=== PATIENT | female | born 2000 | race Caucasian/White ===

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

== ENCOUNTER → 2018-02-27 | Outpatient (CLI) | payer OTHER ==
[2018-02-27 18:27] LABS: BASO # 0.1 10^3/uL (0.0-0.2); BASO % 0.6 % (0.0-1.0); EOS # 0.1 10^3/uL (0.0-0.50); EOS % 0.5 % (0.0-3.0); HEMATOCRIT 34.2 % (36.0-47.0); HEMOGLOBIN 10.7 g/dl (12.0-15.5); IMMATURE GRANULOCYTE % 0.4 % (0-3.0); LYMPH # 1.5 10^3/uL (1.5-6.5); LYMPH % 15.9 % (24.0-44.0); MEAN CORPUSCULAR HGB CONC 31.3 g/dl (32.0-36.5); MONO # 0.6 10^3/uL (0.0-0.8); NEUTROPHILS # 7.2 10^3/uL (1.8-7.7); NEUTROPHILS % 76.6 % (36.0-66.0); PLATELET COUNT, AUTOMATED 221 10^3/uL (150-450); RED BLOOD COUNT 4.12 10^6/uL (4.00-5.40); RED CELL DISTRIBUTION WIDTH 14.4 % (11.5-14.5); WHITE BLOOD COUNT 9.4 10^3/uL (4.0-10.0)
[2018-02-27 22:44] LABS: CHLAMYDIA DNA AMPLIFICATION NEGATIVE (NEGATIVE); GC DNA AMPLIFICATION NEGATIVE (NEGATIVE)
[2018-03-02 10:57] LABS: HBsAg Prenatal NEGATIVE (NEGATIVE); HIV 1&2 SCREEN CENTAUR NEGATIVE (NEGATIVE); RUBELLA IgG QUALITATIVE IMMUNE (IMMUNE)
[2018-03-02 10:57] LABS: HEPATITIS C VIRUS ABY INDEX < 0.0 INDEX (<0.8)
== END ==
LOC: M SMT 11:11
DX: Z36.89 Encounter for other specified antenatal screening (principal)
CPT/HCPCS: 86762

== ENCOUNTER → 2018-04-01 | Outpatient (CLI) | payer OTHER ==
[2018-04-01 16:56] LABS: HEMATOCRIT 32.4 % (36.0-47.0); HEMOGLOBIN 10.1 g/dl (12.0-15.5); MEAN CORPUSCULAR HEMOGLOBIN 24.7 pg (27.0-33.0); MEAN CORPUSCULAR HGB CONC 31.2 g/dl (32.0-36.5); MEAN CORPUSCULAR VOLUME 79.2 fl (80.0-96.0); PLATELET COUNT, AUTOMATED 237 10^3/uL (150-450); RED BLOOD COUNT 4.09 10^6/uL (4.00-5.40); RED CELL DISTRIBUTION WIDTH 15.5 % (11.5-14.5); WHITE BLOOD COUNT 11.5 10^3/uL (4.0-10.0)
== END ==
LOC: M LAB 16:01
DX: Z34.83 Encounter for supervision of other normal pregnancy, third trimester (principal); Z3A.00 Weeks of gestation of pregnancy not specified
CPT/HCPCS: 85027

== ENCOUNTER 2018-04-03 16:13 | Outpatient (CLI) | payer OTHER | END 2018-04-03 17:35 | disposition home or self-care (01) | LOC: M LDO 16:13 | DX: O36.8130 Decreased fetal movements, third trimester, not applicable or unspecified (principal); Z3A.35 35 weeks gestation of pregnancy | CPT/HCPCS: 59025 ==

== ENCOUNTER → 2018-04-15 | Outpatient (REF) | payer OTHER | LOC: M LAB REF 17:18 | DX: Z36.89 Encounter for other specified antenatal screening (principal) | CPT/HCPCS: 87186 ==

== ENCOUNTER 2018-05-08 14:17 | Inpatient (IN) | payer OTHER ==
[2018-05-08] MEDS: miSOPROStol 50 MCG 1/2 TAB (S0191) PO ×2 (16:03→20:29)
[2018-05-08 16:11] LABS: HEMATOCRIT 31.7 % (36.0-47.0); MEAN CORPUSCULAR HEMOGLOBIN 23.6 pg (27.0-33.0); MEAN CORPUSCULAR HGB CONC 31.5 g/dl (32.0-36.5); MEAN CORPUSCULAR VOLUME 74.9 fl (80.0-96.0); PLATELET COUNT, AUTOMATED 229 10^3/uL (150-450); RED BLOOD COUNT 4.23 10^6/uL (4.00-5.40); RED CELL DISTRIBUTION WIDTH 18.3 % (11.5-14.5)
[2018-05-08 16:21] LABS: AMPHETAMINES URINE REFLEX NEGATIVE (NEGATIVE); BARBITURATES URINE REFLEX NEGATIVE (NEGATIVE); BENZODIAZEPINES URINE REFLEX NEGATIVE (NEGATIVE); CANNABINOIDS URINE REFLEX NEGATIVE (NEGATIVE); COCAINE METABOLITE URINE REFLE NEGATIVE (NEGATIVE); METHADONE URINE REFLEX NEGATIVE (NEGATIVE); OPIATES URINE REFLEX NEGATIVE (NEGATIVE); PHENCYCLIDINE URINE REFLEX NEGATIVE (NEGATIVE)
[2018-05-08] MEDS ORDERED: PENICILLIN G POTASSIUM IV 2.5 MU in APPROPRIATE DILUENT 1 EA IV (19:30)
[2018-05-09] MEDS ORDERED: OXYTOCIN 30 UNITS IN 0.9% NaCl 500ML IV BAG (J2590) As Ordered (03:47)
[2018-05-09] MEDS: LR 1,000 ML IV ×2 (03:53→12:21)
[2018-05-09] MEDS: OXYTOCIN DRIP 30 UNITS in APPROPRIATE DILUENT 1 EA IV ×2 (03:56→15:39)
[2018-05-09] MEDS: PENICILLIN G POTASSIUM IV 5 MU in D5W MINI-BAG PLUS 100 ML IV ×2 (08:23→08:30)
[2018-05-09] MEDS ORDERED: FENTANYL 2MCG/ML ROPIVACAINE 0.2% IN 0.9% NACL 100ML IVBAG As Ordered (09:52)
[2018-05-09] MEDS ORDERED: EPIDURAL COMMENT XX (10:00)
[2018-05-09] MEDS: FENTANYL/ROPIVACAINE/NACL BAG 100 ML EPIDURAL (10:00)
[2018-05-09] MEDS ORDERED: REFRIGERATOR IV KEYS XX (10:00)
[2018-05-09] MEDS ORDERED: EPIDURAL/PCA KEYS XX (10:00)
[2018-05-09] MEDS ORDERED: ePHEDrine SULFATE 25 MG/5 ML(5MG/ML) SYRINGE IV (10:45)
[2018-05-09] MEDS ORDERED: diphenhydrAMINE INJ 50MG/ML VIAL (J1200) IV (10:45)
[2018-05-09] MEDS ORDERED: LACTATED RINGER'S 1000 ML IV (10:45)
[2018-05-09] MEDS ORDERED: ONDANSETRON 4MG/2ML VIAL (J2405) IV (10:45)
[2018-05-09] MEDS ORDERED: NALOXONE INJ 0.4 MG/1 ML VIAL (J2310) IV (10:45)
[2018-05-09] MEDS: PENICILLIN G POTASSIUM IV 2.5 MU in APPROPRIATE DILUENT 1 EA IV (12:40)
[2018-05-09 16:11] LABS: CORD GAS ABE A -3.2; CORD GAS HCO3 A 24.7 MEQ/L; CORD GAS O2 SAT A 43.4 %; CORD GAS PCO2 A 55.3 mmHg; CORD GAS PH A 7.268 UNITS; CORD GAS PO2 A 19.5 mmHg; CORD GAS SBC A 20.5 MEQ/L; CORD GAS TCO2 A 26.4 MEQ/L
[2018-05-09 16:14] LABS: CORD GAS ABE V -0.2; CORD GAS HCO3 V 26.4 MEQ/L; CORD GAS O2 SAT V 57.9 %; CORD GAS PCO2 V 50.2 mmHg; CORD GAS PH V 7.339 UNITS; CORD GAS PO2 V 24.3 mmHg; CORD GAS SBC V 23.3 MEQ/L
[2018-05-09] MEDS ORDERED: DOCUSATE SODIUM 100 MG CAP PO (16:15)
[2018-05-09] MEDS ORDERED: METHYLERGONOVINE MALEATE 0.2 MG TAB PO (16:15)
[2018-05-09] MEDS: DIBUCAINE 1% OINTMENT 30GM TOP (18:24)
[2018-05-09] MEDS ORDERED: INFLUENZA QUADRIVALENT PF VACCINE 0.5ML SYRINGE (90686) IM (18:45)
[2018-05-09] MEDS: IBUPROFEN 800 MG TAB PO (20:32)
[2018-05-10] MEDS: PRENATAL VITAMINS CHEWABLE TABLET PO (08:11)
[2018-05-10] MEDS: DIBUCAINE 1% OINTMENT 30GM TOP (10:35)
[2018-05-10] MEDS: IBUPROFEN 800 MG TAB PO (18:13)
[2018-05-10] MEDS: ACETAMINOPHEN 500 MG TAB PO (19:20)
[2018-05-11] MEDS: IBUPROFEN 800 MG TAB PO (04:19)
[2018-05-11] MEDS: RHOGAM 300 MCG (1500 IU) INJ (J2790) IM (07:18)
[2018-05-11] MEDS: MEASLES,MUMPS,RUBELLA VACCINE INJ (MMR-II) (90707) SC (07:19)
[2018-05-11] MEDS: PRENATAL VITAMINS CHEWABLE TABLET PO (09:00)
== END 2018-05-11 12:35 | disposition home or self-care (01) | DRG 560 ==
LOC: M LDI 14:17 → M OBS 05-09 17:35
PROVIDERS: Advanced Practice Midwife
PROC: 0W8NXZZ Division of Female Perineum, External Approach (ICD-10-PCS; principal; 2018-05-09)
PROC: 0HQ9XZZ Repair Perineum Skin, External Approach (ICD-10-PCS; 2018-05-09)
PROC: 3E033VJ Introduction of Other Hormone into Peripheral Vein, Percutaneous Approach (ICD-10-PCS; 2018-05-09)
PROC: 3E0DXGC Introduction of Other Therapeutic Substance into Mouth and Pharynx, External Approach (ICD-10-PCS; 2018-05-09)
PROC: 10E0XZZ Delivery of Products of Conception, External Approach (ICD-10-PCS; 2018-05-09)
DX: O48.0 Post-term pregnancy (principal); B00.9 Herpesviral infection, unspecified; O98.52 Other viral diseases complicating childbirth; Z37.0 Single live birth; Z3A.40 40 weeks gestation of pregnancy; O69.82X0 Labor and delivery complicated by other cord entanglement, without compression, not applicable or unspecified; O70.0 First degree perineal laceration during delivery

== ENCOUNTER 2018-07-07 17:32 | Emergency (ER) | payer OTHER ==
[~2018-07-07] VITALS: Ht 167.6 cm; Wt 84.8 kg
[~2018-07-07 17:32] MED LIST: FERR325T3 PO; IBUP-1114 PO; MAPA500T2 PO; PRENTAB9 PO; TUMS500C PO; VALA500T5 PO
[2018-07-07] MEDS ORDERED: SERT25TA PO (19:06)
[2018-07-07] MEDS ORDERED: TOPI200T7 PO (19:06)
[2018-07-07] MEDS ORDERED: MICR1TAB7 PO (19:06)
[2018-07-07] MEDS ORDERED: LIDOCAINE 2% MDV 20 ML VIAL SC ONE (21:00)
[2018-07-07 22:03] VITALS: BP 117/66
== END 2018-07-07 22:04 | disposition home or self-care (01) ==
LOC: M ED 17:32
DX: L60.0 Ingrowing nail (principal); F32.9 Major depressive disorder, single episode, unspecified; Z79.899 Other long term (current) drug therapy; Z79.3 Long term (current) use of hormonal contraceptives

== ENCOUNTER → 2018-09-15 | Outpatient (CLI) | payer OTHER ==
[~2018-09-15] MED LIST changes: +MICR1TAB7 PO; +SERT25TA85 PO; +TOPI200T7 PO
[2018-09-15 17:24] LABS: HCG, SERUM QUALITATIVE NEGATIVE (NEGATIVE)
== END ==
LOC: M LAB 16:08
PROVIDERS: ATTEND Surgery
DX: Z41.9 Encounter for procedure for purposes other than remedying health state, unspecified (principal)

== ENCOUNTER 2018-09-19 11:12 | Emergency (ER) | payer OTHER ==
[~2018-09-19] VITALS: Ht 167.6 cm; Wt 87.8 kg
[2018-09-19] MEDS ORDERED: SUMA25TA3 (11:17)
[2018-09-19] MEDS ORDERED: ONDANSETRON 4 MG ORAL DISINTEGRATING TAB (Q0162 PER 1MG) PO ONE (11:45)
[2018-09-19] MEDS ORDERED: ONDA4TAB6 PO (12:17)
[2018-09-19 12:26] VITALS: BP 116/72
== END 2018-09-19 12:27 | disposition home or self-care (01) ==
LOC: M ED 11:12
DX: K52.9 Noninfective gastroenteritis and colitis, unspecified (principal); R51 Headache; F32.9 Major depressive disorder, single episode, unspecified; Z79.899 Other long term (current) drug therapy
CPT/HCPCS: 80047; 84702; 99283; Q0162

== ENCOUNTER → 2018-09-24 | Outpatient (REF) | payer OTHER, MEDICAID ==
[~2018-09-24] MED LIST changes: +ONDA4TAB6 PO; +SUMA25TA3
== END ==
LOC: M LAB REF 17:07
PROVIDERS: ATTEND Advanced Practice Midwife
DX: A60.04 Herpesviral vulvovaginitis (principal)

== ENCOUNTER → 2019-01-21 | Outpatient (REF) | payer OTHER, MEDICAID ==
[2019-01-21 13:15] LABS: BASO # 0.1 10^3/uL (0.0-0.2); BASO % 0.9 % (0.0-1.0); EOS # 0.1 10^3/uL (0.0-0.5); EOS % 1.8 % (0.0-3.0); HEMATOCRIT 40.6 % (36.0-47.0); HEMOGLOBIN 12.9 g/dl (12.0-15.5); LYMPH # 3.1 10^3/uL (1.5-5.0); LYMPH % 38.6 % (24.0-44.0); MEAN CORPUSCULAR HEMOGLOBIN 25.1 pg (27.0-33.0); MEAN CORPUSCULAR HGB CONC 31.8 g/dl (32.0-36.5); MEAN CORPUSCULAR VOLUME 79.1 fl (80.0-96.0); MONO # 0.6 10^3/uL (0.0-0.8); NEUTROPHILS # 4.1 10^3/uL (1.5-8.5); NEUTROPHILS % 51.3 % (36.0-66.0); PLATELET COUNT, AUTOMATED 284 10^3/uL (150-450); RED BLOOD COUNT 5.13 10^6/uL (4.00-5.40)
[2019-01-21 13:34] LABS: ALBUMIN 3.5 GM/DL (3.2-5.2); ALT/SGPT 36 U/L (12-78); BILIRUBIN,TOTAL 0.3 MG/DL (0.2-1.0); BLOOD UREA NITROGEN 11 MG/DL (7-18); CALCIUM LEVEL 9.2 MG/DL (8.5-10.1); CARBON DIOXIDE LEVEL 27 MEQ/L (21-32); CHLORIDE LEVEL 105 MEQ/L (98-107); CHOLESTEROL LEVEL 191 MG/DL (<200); CHOLESTEROL RISK RATIO 3.673 (<5); CREATININE FOR GFR 0.77 MG/DL (0.55-1.30); FREE T4 0.99 NG/DL (0.78-1.33); GLUCOSE, FASTING 83 MG/DL (70-100); HDL CHOLESTEROL 52 MG/DL (>40); LDL CHOLESTEROL 123 MG/DL (<100); NON-HDL-C 139 MG/DL; POTASSIUM SERUM 4.2 MEQ/L (3.5-5.1); SODIUM LEVEL 140 MEQ/L (136-145); THYROID STIMULATING HORMONE 0.048 uIU/ML (0.463-3.98); TOTAL 25(OH) VITAMIN D 38.3 NG/ML (30.0-100.0); TRIGLYCERIDES LEVEL 78 MG/DL (<150)
[2019-01-21 14:30] LABS: HEMOGLOBIN A1c 5.4 %
== END ==
LOC: M LAB REF 11:57
PROVIDERS: ATTEND Family Medicine
DX: Z13.228 Encounter for screening for other metabolic disorders (principal)

== ENCOUNTER 2019-02-27 08:21 | Emergency (ER) | payer MEDICAID, OTHER ==
[~2019-02-27] VITALS: Ht 167.6 cm; Wt 98.7 kg
[2019-02-27] MEDS ORDERED: NORCO, ANEXSIA 5/325MG TABLET (HYDROcodone/ACETAMINOPHEN) PO ONE (08:45)
--- NOTE | 2019-02-27 09:45 | REP ---
REASON: Pain after trauma. FINDINGS: No acute fracture or destructive osseous lesion. Electronically Signed by Brian Virgen DO 02/27/2019 09:51 A
--- NOTE | 2019-02-27 09:45 | REP ---
REASON: Pain after trauma. FINDINGS: No acute fracture or destructive osseous lesion. Electronically Signed by Brian Virgen DO 02/27/2019 09:51 A
[2019-02-27] MEDS ORDERED: NAPR-885 PO (09:53)
[2019-02-27 10:04] VITALS: BP 121/70
== END 2019-02-27 10:05 | disposition home or self-care (01) ==
LOC: M ED 08:21
DX: S50.11XA Contusion of right forearm, initial encounter (principal); W10.9XXA Fall (on) (from) unspecified stairs and steps, initial encounter; Y92.099 Unspecified place in other non-institutional residence as the place of occurrence of the external cause; Y93.9 Activity, unspecified; Y99.9 Unspecified external cause status

== ENCOUNTER → 2019-04-08 | Outpatient (REF) | payer OTHER ==
[~2019-04-08] MED LIST changes: +NAPR-885 PO
[2019-04-08 18:18] LABS: FREE T4 0.92 NG/DL (0.76-1.46); THYROID STIMULATING HORMONE 1.25 uIU/ML (0.358-3.740)
[2019-04-08 18:20] LABS: TOTAL T3 174.1 NG/DL (60.0-181.0)
[2019-04-09 12:11] LABS: THYROID PEROXIDASE ANTIBODY 32.6 U/ML (<60.0)
== END ==
LOC: M LABDRAW1 17:35
PROVIDERS: ATTEND Nurse Practitioner Family
DX: E05.00 Thyrotoxicosis with diffuse goiter without thyrotoxic crisis or storm (principal)

== ENCOUNTER 2019-04-24 16:14 | Emergency (ER) | payer OTHER ==
[~2019-04-24] VITALS: Ht 167.6 cm; Wt 98.4 kg
[2019-04-24 16:14] VITALS: BP 141/63
[2019-04-24] MEDS ORDERED: MONI4CRE3 PV (16:55)
== END 2019-04-24 17:10 | disposition home or self-care (01) ==
LOC: M ED 16:14
DX: O23.591 Infection of other part of genital tract in pregnancy, first trimester (principal); R59.0 Localized enlarged lymph nodes; Z3A.11 11 weeks gestation of pregnancy

== ENCOUNTER → 2019-06-15 | Outpatient (CLI) | payer OTHER ==
[~2019-06-15] MED LIST changes: +MONI4CRE3 PV
[2019-06-15 18:40] LABS: BASO # 0.1 10^3/uL (0.0-0.2); BASO % 0.5 % (0.0-1.0); EOS # 0.1 10^3/uL (0.0-0.5); EOS % 1.1 % (0.0-3.0); HEMATOCRIT 39.3 % (36.0-47.0); LYMPH # 2.3 10^3/uL (1.5-5.0); MEAN CORPUSCULAR HEMOGLOBIN 25.8 pg (27.0-33.0); MEAN CORPUSCULAR HGB CONC 30.5 g/dl (32.0-36.5); MEAN CORPUSCULAR VOLUME 84.3 fl (80.0-96.0); MONO # 0.7 10^3/uL (0.0-0.8); NEUTROPHILS # 7.9 10^3/uL (1.5-8.5); NEUTROPHILS % 70.8 % (36.0-66.0); PLATELET COUNT, AUTOMATED 262 10^3/uL (150-450); RED BLOOD COUNT 4.66 10^6/uL (4.00-5.40); WHITE BLOOD COUNT 11.2 10^3/uL (4.0-10.0)
[2019-06-15 20:01] LABS: CHLAMYDIA DNA AMPLIFICATION NEGATIVE (NEGATIVE); GC DNA AMPLIFICATION NEGATIVE (NEGATIVE)
[2019-06-16 10:59] LABS: HEPATITIS C VIRUS ABY INDEX < 0.0 INDEX (<0.8); HIV 1&2 SCREEN CENTAUR NEGATIVE (NEGATIVE); RUBELLA IgG QUALITATIVE IMMUNE (IMMUNE)
== END ==
LOC: M PLALAB 12:59
PROVIDERS: ATTEND Advanced Practice Midwife
DX: Z34.81 Encounter for supervision of other normal pregnancy, first trimester (principal); Z3A.00 Weeks of gestation of pregnancy not specified

== ENCOUNTER → 2019-06-17 | Outpatient (REF) | payer OTHER | LOC: M SFHCWAGY 13:55 | PROVIDERS: ATTEND Advanced Practice Midwife | DX: Z12.4 Encounter for screening for malignant neoplasm of cervix (principal) ==

== ENCOUNTER → 2019-06-29 | Outpatient (CLI) | payer OTHER ==
--- NOTE | 2019-06-29 13:38 | REP ---
Clinical: Anatomical evaluation. Comparison: None . Findings: Examination demonstrates a single live intrauterine in cephalic presentation. motion is identified by technologist. Placenta is noted posterior and grade I without evidence for placenta previa or abruption. Amniotic fluid volume is normal. Cervix measures 3.1 cm in length and appears closed. No evidence for nuchal cord. Gestational age by current measurements 19 weeks 6 days with ANGELICA 11/17/2019 . FHR equals 146 beats per minute. BPD 4.6 cm 19 weeks 6 days HC 17.8 cm 20 weeks 2 days AC 15.2 cm 20 weeks 3 days FL 3.2 cm 20 weeks 0 days HL 2.9 cm 19 weeks 3 days HC/AC ratio 1.17 Estimated weight 339 grams ( 58th percentile). Anatomical assessment demonstrates normal structures including cranium, choroid plexus, cavum, cerebellum/posterior fossa, facial features, lungs, four-chamber heart/ventricular outflow tracts, diaphragm, stomach, cord insertion/three-vessel cord, kidneys/bladder, spine, and extremities. Impression: Single live intrauterine in cephalic presentation demonstrating appropriate interval growth. Anatomical assessment is complete and normal. No gross abnormalities are identified.
== END ==
LOC: M WHC 10:25
PROVIDERS: ATTEND Advanced Practice Midwife
DX: Z34.92 Encounter for supervision of normal pregnancy, unspecified, second trimester (principal); Z3A.19 19 weeks gestation of pregnancy

== ENCOUNTER → 2019-07-23 | Outpatient (REF) | payer OTHER | LOC: M SFHCWAGY 09:47 | PROVIDERS: ATTEND Advanced Practice Midwife | DX: Z34.82 Encounter for supervision of other normal pregnancy, second trimester (principal) ==

== ENCOUNTER → 2019-08-23 | Outpatient (REF) | payer OTHER ==
[2019-08-23 17:47] LABS: HEMATOCRIT 33.8 % (36.0-47.0); HEMOGLOBIN 10.6 g/dl (12.0-15.5); MEAN CORPUSCULAR HEMOGLOBIN 25.3 pg (27.0-33.0); MEAN CORPUSCULAR HGB CONC 31.4 g/dl (32.0-36.5); MEAN CORPUSCULAR VOLUME 80.7 fl (80.0-96.0); PLATELET COUNT, AUTOMATED 231 10^3/uL (150-450); RED BLOOD COUNT 4.19 10^6/uL (4.00-5.40); WHITE BLOOD COUNT 11.3 10^3/uL (4.0-10.0)
== END ==
LOC: M PLALAB 14:39
PROVIDERS: ATTEND Advanced Practice Midwife
DX: Z34.82 Encounter for supervision of other normal pregnancy, second trimester (principal)

== ENCOUNTER → 2019-09-16 | Outpatient (CLI) | payer OTHER ==
[2019-09-16 18:07] LABS: BASO % 0.3 % (0.0-1.0); EOS # 0.1 10^3/uL (0.0-0.5); EOS % 0.8 % (0.0-3.0); HEMATOCRIT 33.5 % (36.0-47.0); HEMOGLOBIN 10.4 g/dl (12.0-15.5); LYMPH # 2.2 10^3/uL (1.5-5.0); LYMPH % 17.9 % (24.0-44.0); MEAN CORPUSCULAR HEMOGLOBIN 24.8 pg (27.0-33.0); MEAN CORPUSCULAR VOLUME 79.8 fl (80.0-96.0); MONO # 0.7 10^3/uL (0.0-0.8); MONO % 5.7 % (0.0-5.0); NEUTROPHILS # 9.3 10^3/uL (1.5-8.5); NEUTROPHILS % 74.5 % (36.0-66.0); PLATELET COUNT, AUTOMATED 235 10^3/uL (150-450); WHITE BLOOD COUNT 12.5 10^3/uL (4.0-10.0)
[2019-09-16 18:14] LABS: ALBUMIN 2.4 GM/DL (3.2-5.2); ALT/SGPT 19 U/L (12-78); BILIRUBIN,DIRECT < 0.1 MG/DL (0.0-0.2); BILIRUBIN,TOTAL 0.2 MG/DL (0.2-1.0); BLOOD UREA NITROGEN 8 MG/DL (7-18); CARBON DIOXIDE LEVEL 26 MEQ/L (21-32); CHLORIDE LEVEL 105 MEQ/L (98-107); CREATININE FOR GFR 0.66 MG/DL (0.55-1.30); GLOMERULAR FILTRATION RATE > 60.0 (>60); GLUCOSE, FASTING 105 MG/DL (70-100); POTASSIUM SERUM 4.1 MEQ/L (3.5-5.1); SODIUM LEVEL 139 MEQ/L (136-145); TOTAL PROTEIN 6.5 GM/DL (6.4-8.2)
== END ==
LOC: M PLALAB 15:10
PROVIDERS: ATTEND Physician Assistant
DX: L30.9 Dermatitis, unspecified (principal)

== ENCOUNTER 2019-10-25 17:48 | Outpatient (CLI) | payer OTHER ==
[~2019-10-25] VITALS: Ht 167.6 cm; Wt 100.4 kg
[2019-10-25 18:09] VITALS: BP 125/75
[2019-10-25] MEDS ORDERED: VALA500T5 PO (18:18)
--- NOTE | 2019-10-25 18:38 | IPNPDOC ---
Text Note Date of Service The patient was seen on 10/25/19. NOTE Subjective: Patient is a 19-year-old female who is a at 36.5 weeks gestation with an ANGELICA of 11/17/19 based off of her first trimester ultrasound. She initiated care in her first trimester with [facility]. Her has been uncomplicated. [facility] with complaints of decreased movement. She reports some stephany mott contractions but no painful contraction s. She denies leaking of fluid or vaginal bleeding. She reports the last time she felt her baby move was this morning. Past pregnancies: 05/09/18: of a living male at 41 weeks weighting 8 lbs 9 oz with no complications. 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 FHR: 120, moderate variability, positive accelerations, no decelerations. Contractions: 1 to 4 minutes. SVE: 1-2/75/-3, posterior, soft, no show. A+Ox3. Respiratory rate is regular with no use of accessory muscles. Abdomen gravid and non-tender to palpation. Extremities: no edema. Assessment: IUP at 36.5 weeks, decreased movement, Category I FHR tracing. Plan: GBS obtained. Urine sent to lab. BPP ordered and baby was active and in cephalic presentation. BPP 8/8. Patient discharged to home with precautions. She has an appointment 10/28/19. Patient encouraged to follow-up at her appointment. Reviewed access to care, kick count, labor and term labor signs, and danger signs to report. Patient reports she is feeling tightening when baby is moving. Extensive education done on movement. VS,Fishbone, I+O VS, Fishbone, I+O Vital Signs Date Time Temp Pulse Resp B/P (MAP) Pulse Ox O2 Delivery O2 Flow Rate FiO2 10/25/19 18:09 98.0 97 16 125/75 (92) EXAMINATION REQUESTED: BPP W/O NON STRESS TEST REASON FOR PATIENT VISIT: DECREASE MOVEMENT REASON FOR EXAMINATION: decreased movement PROCEDURE INFORMATION: Exam: US Biophysical Profile Without Non-Stress Test Exam date and time: 10/25/2019 7:36 PM Age: 19 years old Clinical indication: Other: Decreased movement; ; Additional info: Decreased movement TECHNIQUE: Imaging protocol: US biophysical profile without non-stress testing. COMPARISON: OBS COMPLETE US 06/29/2019 10:39 AM FINDINGS: Heart rate: heart rate 126 bpm. Amniotic fluid index: Amniotic fluid index 16.3 cm. BIOPHYSICAL PROFILE: Breathin/2 Gross body movements: 2/2 tone: 2/2 Qualitative amniotic fluid: 2/2 Biophysical Profile Score: 8/8 IMPRESSION: Normal biophysical profile. Electronically signed by: Juan Conrad On 10/25/2019 19:47:29 PM ABHISHEK ARVIZU CNM Oct 25, 2019 18:38
[2019-10-25 19:14] LABS: APPEARANCE, URINE CLEAR (CLEAR); BACTERIA, URINE AUTO 1+ (NEGATIVE); BILIRUBIN, URINE AUTO NEGATIVE (NEGATIVE); BLOOD, URINE BLOOD NEGATIVE (NEGATIVE); COLOR, URINE YELLOW (YELLOW); GLUCOSE, URINE (UA) AUTO NEGATIVE (NEGATIVE); KETONE, URINE AUTO TRACE mg/dL (NEGATIVE); LEUKOCYTE ESTERASE, URINE AUTO TRACE (NEGATIVE); MUCUS, URINE SMALL (NEGATIVE); NITRITE, URINE AUTO NEGATIVE (NEGATIVE); PROTEIN, URINE AUTO NEGATIVE (NEGATIVE); RBC, URINE AUTO 2 /HPF (0-3); SPECIFIC GRAVITY URINE AUTO 1.016 (1.002-1.035); SQUAMOUS EPITHELIAL CELL UR AU 2 /HPF (0-6); UROBILINOGEN, URINE AUTO 0.2 mg/dL (0.0-2.0); WBC, URINE AUTO 3 /HPF (0-3)
[2019-10-25 19:47] VITALS: BP 125/72
--- NOTE | 2019-10-25 19:47 | REPVR ---
PROCEDURE INFORMATION: Exam: US Biophysical Profile Without Non-Stress Test Exam date and time: 10/25/2019 7:36 PM Age: 19 years old Clinical indication: Other: Decreased movement; ; Additional info: Decreased movement TECHNIQUE: Imaging protocol: US biophysical profile without non-stress testing. COMPARISON: OBS COMPLETE US 06/29/2019 10:39 AM FINDINGS: Heart rate: heart rate 126 bpm. Amniotic fluid index: Amniotic fluid index 16.3 cm. BIOPHYSICAL PROFILE: Breathin/2 Gross body movements: 2/2 tone: 2/2 Qualitative amniotic fluid: 2/2 Biophysical Profile Score: 8/8 IMPRESSION: Normal biophysical profile. Electronically signed by: Juan Conrad On 10/25/2019 19:47:29 PM
== END 2019-10-25 20:25 | disposition home or self-care (01) ==
LOC: M LDO 17:48
PROVIDERS: ATTEND Advanced Practice Midwife
DX: O36.8131 Decreased fetal movements, third trimester, fetus 1 (principal); O47.03 False labor before 37 completed weeks of gestation, third trimester; Z3A.36 36 weeks gestation of pregnancy

== ENCOUNTER 2019-11-11 09:41 | Inpatient (IN) | payer OTHER ==
[~2019-11-11] VITALS: Ht 167.6 cm; Wt 100.0 kg
[2019-11-11] MEDS ORDERED: OXYTOCIN 30 UNITS IN 0.9% NaCl 500ML IV BAG (J2590) As Ordered ONE (10:04)
[2019-11-11 10:18] VITALS: BP 128/73
[2019-11-11 10:33] VITALS: BP 120/73
[2019-11-11 10:49] VITALS: BP 131/72
[2019-11-11 11:03] VITALS: BP 126/67
[2019-11-11] MEDS ORDERED: OXYTOCIN INJ 10 UNITS/ML VIAL (J2590) IM ONE (11:15)
[2019-11-11] MEDS ORDERED: MEASLES,MUMPS,RUBELLA VACCINE INJ (MMR-II) (90707) SC SCH (11:15)
[2019-11-11] MEDS ORDERED: LIDOCAINE 1% MDV 20ML VIAL INFIL ONE (11:15)
[2019-11-11] MEDS ORDERED: ACETAMINOPHEN 500 MG TAB PO PRN (11:15)
[2019-11-11] MEDS ORDERED: ACETAMINOPHEN TAB 650MG DOSE (2X325MG) PO PRN (11:15)
[2019-11-11] MEDS ORDERED: RHOGAM 300 MCG (1500 IU) INJ (J2790) IM SCH (11:15)
[2019-11-11] MEDS ORDERED: IBUPROFEN 600MG TAB PO PRN (11:15)
[2019-11-11] MEDS ORDERED: METHYLERGONOVINE MALEATE 0.2 MG TAB PO PRN (11:15)
[2019-11-11] MEDS ORDERED: DIBUCAINE 1% OINTMENT 30GM TOP PRN (11:15)
[2019-11-11] MEDS ORDERED: DOCUSATE SODIUM 100 MG CAP PO PRN (11:15)
[2019-11-11 11:18] VITALS: BP 132/66
[2019-11-11 11:39] LABS: HEMATOCRIT 35.7 % (36.0-47.0); HEMOGLOBIN 10.9 g/dl (12.0-15.5); MEAN CORPUSCULAR HEMOGLOBIN 23.5 pg (27.0-33.0); MEAN CORPUSCULAR HGB CONC 30.5 g/dl (32.0-36.5); MEAN CORPUSCULAR VOLUME 77.1 fl (80.0-96.0); PLATELET COUNT, AUTOMATED 203 10^3/uL (150-450); RED BLOOD COUNT 4.63 10^6/uL (4.00-5.40)
--- NOTE | 2019-11-11 11:40 | HPE ---
DATE OF ADMISSION: 11/11/2019 19-year-old, (G) 2, para (P) 1 female, at 39-0/7 weeks gestation by 7 week ultrasound, estimated date of confinement (EDC) of 11/17/2019, presents with regular contractions every 3-4 minutes for the last several hours. The contractions increased in intensity. She denies vaginal bleeding and there is good movement. COURSE: The patient's care was through [facility]. She had no complications. OBSTETRICAL HISTORY: April 2018, 41 week vaginal delivery, 8 pound 9 ounce male , no complications. MEDICAL HISTORY: 1. Genital herpes. SURGICAL HISTORY: None. ALLERGIES: NONE. SOCIAL HISTORY: The patient is lives in [place], [place]. She denies cigarettes, alcohol or drug use. The father of the baby is involved. FAMILY HISTORY: Noncontributory. PHYSICAL EXAMINATION: Blood pressure 134/74, pulse 84. She appears markedly uncomfortable. HEAD/NECK EXAM: Normal. LUNGS: Clear. HEART: Regular rate and rhythm. ABDOMEN: Nontender, gravid. heart tones category 1. CONTRACTIONS: Every 2-3 minutes. STERILE VAGINAL EXAM: 10 cm, intact, zero station. LABS: GBS negative. Blood type A positive. ASSESSMENT: 19-year-old, 2, para 1, at 39-0/7 weeks gestation, presents in active labor. PLAN: The patient is admitted on 11/11/2019. Anticipate vaginal delivery.
[2019-11-11 15:15] VITALS: BP 116/63
[2019-11-12 06:00] VITALS: BP 120/64
[2019-11-12] MEDS: PRENATAL VITAMINS CHEWABLE TABLET PO SCH (08:14)
[2019-11-12 18:00] VITALS: BP 118/61
[2019-11-12] MEDS: IBUPROFEN 800 MG TAB PO PRN (20:00)
[2019-11-13 06:00] VITALS: BP 117/67
[2019-11-13] MEDS: PRENATAL VITAMINS CHEWABLE TABLET PO SCH (08:20)
[2019-11-13] MEDS: IBUPROFEN 800 MG TAB PO PRN (08:21)
--- NOTE | 2019-11-16 14:41 | DN ---
DATE OF DELIVERY: 11/11/2019 PREDELIVERY DIAGNOSIS: 39 weeks, labor. POSTDELIVERY DIAGNOSIS: Delivered. PROCEDURE: Spontaneous vaginal delivery. BREAKER ENGINEER: Bryson Dumont MD ANESTHESIA: None. ESTIMATED BLOOD LOSS: 300 mL. FINDINGS: 8 pound 5 ounce male with score 8 and 9. DELIVERY SUMMARY: The patient presented in active labor, 10 cm dilated. She very quickly delivered an 8 pound 5 ounce male , score 8 and 9, with no delivery anesthesia. There was no nuchal cord. The shoulders delivered with ease. The infant cried immediately. The cord was doubly clamped and cut. The infant was handed to mother. The placenta delivered spontaneously and appeared to be intact. The patient received intramuscular (IM) pitocin immediately after delivery of the placenta. The patient did not have intravenous (IV) access. A second-degree perineal laceration was repaired with #2-0 chromic under local anesthesia in the usual fashion. Sponge and needle counts were correct.
== END 2019-11-13 11:50 | disposition home or self-care (01) | DRG 560 ==
LOC: M LDI 09:41 → M OBS 17:40
PROVIDERS: ADMIT Specialist; ATTEND Specialist
PROC: 10E0XZZ Delivery of Products of Conception, External Approach (ICD-10-PCS; principal; 2019-11-11)
PROC: 0KQM0ZZ Repair Perineum Muscle, Open Approach (ICD-10-PCS; 2019-11-11)
DX: O70.1 Second degree perineal laceration during delivery (principal); Z37.0 Single live birth; Z3A.39 39 weeks gestation of pregnancy

== ENCOUNTER → 2020-04-10 | Outpatient (CLI) | payer OTHER ==
--- NOTE | 2020-04-10 14:52 | REP ---
INDICATION: PAIN IN LEFT KNEE COMPARISON: None. TECHNIQUE: AP, sunrise, and lateral views of the left knee. FINDINGS: Osseous structures, joint spaces, and surrounding soft tissues appear normal. No arthritic changes. No effusion. No acute fracture or dislocation. IMPRESSION: Normal left knee radiographs. <Electronically signed by Arron Pedro > 04/10/20 [id number]
== END ==
LOC: M RAD 14:03
PROVIDERS: ATTEND Physician Assistant
DX: M25.562 Pain in left knee (principal)

== ENCOUNTER → 2021-05-03 | Outpatient (REF) | payer OTHER ==
[2021-05-03 15:59] LABS: APPEARANCE, URINE HAZY (CLEAR); BACTERIA, URINE AUTO NEGATIVE (NEGATIVE); BILIRUBIN, URINE AUTO NEGATIVE (NEGATIVE); BLOOD, URINE BLOOD 1+ (NEGATIVE); COLOR, URINE YELLOW (YELLOW); GLUCOSE, URINE (UA) AUTO NEGATIVE (NEGATIVE); KETONE, URINE AUTO NEGATIVE (NEGATIVE); LEUKOCYTE ESTERASE, URINE AUTO 2+ (NEGATIVE); NITRITE, URINE AUTO NEGATIVE (NEGATIVE); PROTEIN, URINE AUTO NEGATIVE (NEGATIVE); RBC, URINE AUTO 10 /HPF (0-3); SPECIFIC GRAVITY URINE AUTO 1.011 (1.002-1.035); SQUAMOUS EPITHELIAL CELL UR AU 4 /HPF (0-6); UROBILINOGEN, URINE AUTO 0.2 mg/dL (0.0-2.0); WBC, URINE AUTO 95 /HPF (0-3)
[2021-05-03 17:29] LABS: GC DNA AMPLIFICATION NEGATIVE (NEGATIVE)
== END ==
LOC: M LAB REF 15:37
PROVIDERS: ATTEND Physician Assistant
DX: N39.0 Urinary tract infection, site not specified (principal)

== ENCOUNTER 2022-11-12 18:02 | Emergency (ER) | payer OTHER ==
[~2022-11-12] VITALS: Ht 162.6 cm; Wt 103.1 kg
[~2022-11-12 18:02] MED LIST changes: -MICR1TAB7 PO; +NORE1TAB90 PO
[2022-11-12 18:03] VITALS: BP 129/78; TEMP 96.3; O2SAT 97
== END 2022-11-12 19:47 | disposition left against medical advice (07) ==
LOC: M ED 18:02
DX: Z53.21 Procedure and treatment not carried out due to patient leaving prior to being seen by health care provider (principal)

== ENCOUNTER → 2023-10-17 | Outpatient (REF) | payer OTHER ==
[~2023-10-17] MED LIST changes: +ONDA-282 PO; -ONDA4TAB6 PO
== END ==
LOC: M PLALAB 09:57
PROVIDERS: ATTEND Advanced Practice Midwife
DX: O36.80X0 Pregnancy with inconclusive fetal viability, not applicable or unspecified (principal); O02.81 Inappropriate change in quantitative human chorionic gonadotropin (hCG) in early pregnancy